=== PATIENT | female | born 1970 | race Caucasian/White ===

== ENCOUNTER → 2018-01-15 | Outpatient (CLI) | payer OTHER ==
[~2018-01-15] MED LIST: LEVAQUIN500 MG PO; MEDROL DOSEPAK4 MG PO; NAPROSYN500 MG PO; PERCOCET 5/31 TABLET PO
== END | disposition home or self-care (01) ==
LOC: RES 12-18 11:00
DX: R05 Cough (principal)
CPT/HCPCS: 94070; 94726; 94729